=== PATIENT | male | born 1970 | race Caucasian/White ===

== ENCOUNTER 2022-05-24 15:05 | Outpatient (CLI) | payer OTHER, SELFPAY ==
[2022-05-24 14:24] LABS: Cholesterol* 142 mg/dL (90-199); HDL Cholesterol* 28 mg/dL (>=40); LDL Cholesterol Calculated 85 mg/dL (<100); Triglycerides* 144 mg/dL (40-149)
== END 2022-05-24 15:06 | disposition home or self-care (01) ==
PROVIDERS: PCP Family Medicine; Visit Provider Family Medicine
DX: Z00.00 Encounter for general adult medical examination without abnormal findings (principal); E03.9 Hypothyroidism, unspecified; E11.9 Type 2 diabetes mellitus without complications; I10 Essential (primary) hypertension; N40.0 Benign prostatic hyperplasia without lower urinary tract symptoms; Z13.6 Encounter for screening for cardiovascular disorders
CPT/HCPCS: 80061; 84443

== ENCOUNTER 2022-12-12 14:46 | Outpatient (CLI) | payer OTHER, SELFPAY | END 2022-12-12 14:47 | disposition home or self-care (01) | LOC: NFLDREF 12-13 08:12 | PROVIDERS: PCP Family Medicine; Referring Provider Family Medicine; Visit Provider Family Medicine | DX: E11.9 Type 2 diabetes mellitus without complications (principal); E78.00 Pure hypercholesterolemia, unspecified; E03.9 Hypothyroidism, unspecified; I10 Essential (primary) hypertension; N40.0 Benign prostatic hyperplasia without lower urinary tract symptoms; H61.20 Impacted cerumen, unspecified ear; R79.89 Other specified abnormal findings of blood chemistry | CPT/HCPCS: 82043; 82570 ==

== ENCOUNTER 2023-09-18 08:26 | Outpatient (CLI) | payer OTHER, SELFPAY | END 2023-09-18 08:27 | disposition home or self-care (01) | LOC: LKVREF 08:27 | PROVIDERS: PCP Family Medicine; Visit Provider Family Medicine | DX: I10 Essential (primary) hypertension (principal); R79.89 Other specified abnormal findings of blood chemistry; E03.9 Hypothyroidism, unspecified; N40.0 Benign prostatic hyperplasia without lower urinary tract symptoms; Z12.5 Encounter for screening for malignant neoplasm of prostate | CPT/HCPCS: 80053; 80061; 82043; 82570; 84270; 84402; 84403; 84443; G0103 ==